=== PATIENT | male | born 1990 | race Caucasian/White ===

== ENCOUNTER → 2021-04-06 | Outpatient (CLI) | payer MEDICARE, MEDICAID | LOC: SLEEP 19:15 | PROVIDERS: ATTEND Nurse Practitioner | DX: G47.33 Obstructive sleep apnea (adult) (pediatric) (principal); E78.00 Pure hypercholesterolemia, unspecified; Q90.9 Down syndrome, unspecified; D22.9 Melanocytic nevi, unspecified; E03.9 Hypothyroidism, unspecified; E78.5 Hyperlipidemia, unspecified; F32.9 Major depressive disorder, single episode, unspecified | CPT/HCPCS: 95811 ==

== ENCOUNTER 2023-05-09 05:47 | Emergency (ER) | payer MEDICARE, MEDICAID ==
[~2023-05-09] VITALS: Ht 157.4 cm; Wt 94.5 kg
--- NOTE | 2023-05-09 06:41 | ED Cardiac General ---
History of Present Illness General Chief Complaint: Cardiac/General Problems Stated Complaint: Bradycardia Nursing Triage Note: Patient arrival per POV ambulatory to ED RM 1 with mother (guardian) accompanied. Pt has Down's Syndrome. Mother reports she has been checking his heart rate on an SpO2 monitor this wknd and seeing bradycardia rates as low as [address] Child office and appt made today. Pt's CPAP machine downloaded yesterday by Dr Lo and no abnormality noted. Lowest rates when asleep, Pt is asymptomatic. Source: family (Mother), RN notes reviewed Exam Limitations: physical impairment (Down syndrome) (MYNOR GUERRERO MD) History of Present Illness Date Seen by Provider: May 09, 2023 Time Seen by Provider: 06:14 Initial Comments 32-year-old male patient with history of Down syndrome, hypothyroidism, sleep apnea on CPAP, hyperlipidemia brought in by his mother because of bradycardia.. Patient mother is a retired PRODUCTION COUNTER and checked his blood pressure 4 days ago whilst he was checking her blood pressure and was concern for bradycardia that was as low as 41. Patient did not have any symptoms. Patient mother talked to his primary care physician Dr. Child yesterday and made appointment for today and PCP recommended to come to ER for EKG and blood test and troponin if continues to have bradycardia and she checked his pulse oximeter intermittently during the night and decided to come to ER because of bradycardia because of heart rate of as low as 37 while asleep. Patient's CPAP machine downloaded yesterday by Dr. Lo and no abnormality was noted. Patient is oriented x1 and does not have any complaint. Patient mother stated he recently complaining of episode of abdominal pain and he gave him omeprazole occasionally. ASA po BUSINESS OFFICE SPECIALIST: No (MYNOR GUERRERO MD) Allergies and Home Medications Allergies Coded Allergies: morphine (Unverified Adverse Reaction, Unknown, 05/09/23) Patient Home Medication List Home Medication List Reviewed: Yes (MYNOR GUERRERO MD) Review of Systems Review of Systems Constitutional: no symptoms reported EENTM: No Symptoms Reported Respiratory: No Symptoms Reported Cardiovascular: See HPI Gastrointestinal: See HPI Genitourinary: No Symptoms Reported Musculoskeletal: no symptoms reported Skin: no symptoms reported Psychiatric/Neurological: No Symptoms Reported Endocrine: No Symptoms Reported Hematologic/Lymphatic: No Symptoms Reported Other Comments Patient has Down syndrome and denies any problem. 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 oz. kg; 38.00 BMI Method: General Appearance: No Apparent Distress HEENT: PERRL/EOMI Neck: Full Range of Motion Respiratory: Chest Non Tender, Lungs Clear, Normal Breath Sounds Cardiovascular: No Edema, Bradycardia Gastrointestinal: Normal Bowel Sounds, No Organomegaly, No Pulsatile Mass Extremity: Normal Capillary Refill Neurologic/Psychiatric: Alert Skin: Normal Color, Warm/Dry (MYNOR GUERRERO MD) Progress/Results/Core Measures Results/Orders Lab Results Laboratory Tests Test 05/09/23 06:40 Range/Units White Blood Count 3.9 L 4.3-11.0 10^3/uL Red Blood Count 5.02 4.30-5.52 10^6/uL Hemoglobin 14.7 13.3-17.7 g/dL Hematocrit 44 40-54 % Mean Corpuscular Volume 88 80-99 fL Mean Corpuscular Hemoglobin 29 25-34 pg Mean Corpuscular Hemoglobin Concent 33 32-36 g/dL Red Cell Distribution Width 13.2 10.0-14.5 % Platelet Count 195 130-400 10^3/uL Mean Platelet Volume 9.0 9.0-12.2 fL Immature Granulocyte % (Auto) 0 % Neutrophils (%) (Auto) 51 42-75 % Lymphocytes (%) (Auto) 38 12-44 % Monocytes (%) (Auto) 7 0-12 % Eosinophils (%) (Auto) 2 0-10 % Basophils (%) (Auto) 2 0-10 % Neutrophils # (Auto) 2.0 1.8-7.8 10^3/uL Lymphocytes # (Auto) 1.5 1.0-4.0 10^3/uL Monocytes # (Auto) 0.3 0.0-1.0 10^3/uL Eosinophils # (Auto) 0.1 0.0-0.3 10^3/uL Basophils # (Auto) 0.1 0.0-0.1 10^3/uL Immature Granulocyte # (Auto) 0.0 0.0-0.1 10^3/uL Prothrombin Time 13.1 12.2-14.7 SEC INR Comment 1.0 0.8-1.4 Activated Partial Thromboplast Time 37 H 24-35 SEC Sodium Level 135 135-145 MMOL/L Potassium Level 4.4 3.6-5.0 MMOL/L Chloride Level 100 98-107 MMOL/L Carbon Dioxide Level 25 21-32 MMOL/L Anion Gap 10 5-14 MMOL/L Blood Urea Nitrogen 19 H 7-18 MG/DL Creatinine 0.95 0.60-1.30 MG/DL Estimat Glomerular Filtration Rate 108 BUN/Creatinine Ratio 20 Glucose Level 148 H 70-105 MG/DL Calcium Level 9.1 8.5-10.1 MG/DL Corrected Calcium 9.3 8.5-10.1 MG/DL Magnesium Level 2.3 1.6-2.4 MG/DL Total Bilirubin 0.7 0.1-1.0 MG/DL Aspartate Amino Transf (AST/SGOT) 16 5-34 U/L Alanine Aminotransferase (ALT/SGPT) 17 0-55 U/L Alkaline Phosphatase 83 40-136 U/L Troponin I < 0.30 <0.30 NG/ML Pro-B-Type Natriuretic Peptide < 36.0 <125.0 PG/ML Total Protein 7.3 6.4-8.2 GM/DL Albumin 3.7 3.2-4.5 GM/DL (AMY LEVY MD) Vital Signs/I&O 05/09/23 05:54 Temp 35.1 Pulse 62 Resp 16 B/P (MAP) 123/80 (94) Pulse Ox 99 O2 Delivery Room Air (AMY LEVY MD) Blood Pressure Mean: 94 Progress Progress Note : Progress Note Patient with history of Down syndrome brought in by his mother who is a retired ER nurse because of bradycardia with heart rate as low as 37 without symptoms. EKG showed normal sinus rhythm at rate of 60. Patient had few episodes of bradycardia at 50s. Labs is pending. Patient care transferred to incoming ER physician at 0700. (MYNOR GUERRERO MD) Progress Note : Progress Note Received the patient in signout. I personally evaluated him, at that time his heart rate was in the 70s to 80s. He is alert, has been asymptomatic this whole time. The basic labs were significant for normal hemoglobin, normal potassium, normal magnesium, normal creatinine, negative troponin, normal BNP. I discussed asymptomatic bradycardia with the patient's mother and the patient. I recommended follow-up with cardiology and the PCP. I believe he stable for discharge with outpatient follow-up. He was sent home with strict return precautions. (AMY LEVY MD) Initial ECG Impression Date: May 09, 2023 Initial ECG Impression Time: 06:35 Initial ECG Rate: 60 Initial ECG Intervals EKG interpreted by me and showed normal sinus rhythm at rate of 60, CA interval of 143, QT interval of 430 and QTc of 431, QRS duration of 98, no acute ST and T wave elevation. (MYNOR GUERRERO MD) Departure Impression Primary Impression: Asymptomatic bradycardia Disposition: 01 HOME, SELF-CARE Condition: Stable Departure-Patient Inst. Decision time for Depature: 07:30 (AMY LEVY MD) Referrals: MATT CHILD MD (PCP/Family) Primary Care Physician Patient Instructions: Bradycardia (DC) Add. Discharge Instructions: His current diagnosis is asymptomatic bradycardia. He is mostly bradycardic when he is resting and not active which is reassuring that his heart rate goes up with activity. We recommend following up with his PCP as well as with the instructor dancing in [place], either Dr. Zavala or Dr. Falk. If he becomes symptomatic when bradycardic such as having low blood pressure, lightheaded or passing out, then we would want him to come back to the ER. Work/School Note: Family Work Note, Patient Received Medical Care In the Emergency Department On: May 09, 2023 Patient Will Be Able to Return to Work/School On: May 10, 2023 Work Release Form Date Seen in the Emergency Department: May 09, 2023 Return to Work: May 10, 2023 Restrictions: No Restrictions MYNOR GUERRERO MD May 09, 2023 06:41 AMY LEVY MD May 09, 2023 07:26
[2023-05-09 06:50] LABS: BASOPHILS # (AUTO) 0.1 10^3/uL (0.0-0.1); BASOPHILS % (AUTO) 2 % (0-10); EOSINOPHILS # (AUTO) 0.1 10^3/uL (0.0-0.3); EOSINOPHILS % (AUTO) 2 % (0-10); HEMATOCRIT 44 % (40-54); HEMOGLOBIN 14.7 g/dL (13.3-17.7); LYMPHOCYTES # (AUTO) 1.5 10^3/uL (1.0-4.0); LYMPHOCYTES % (AUTO) 38 % (12-44); MEAN CORPUSCULAR HEMOGLOBIN 29 pg (25-34); MEAN CORPUSCULAR HGB CONC 33 g/dL (32-36); MEAN CORPUSCULAR VOLUME 88 fL (80-99); MONOCYTES # (AUTO) 0.3 10^3/uL (0.0-1.0); MONOCYTES % (AUTO) 7 % (0-12); NEUTROPHILS % (AUTO) 51 % (42-75); PLATELET COUNT 195 10^3/uL (130-400); WHITE BLOOD COUNT 3.9 10^3/uL (4.3-11.0)
[2023-05-09 07:04] LABS: PROTHROMBIN TIME PATIENT 13.1 SEC (12.2-14.7)
[2023-05-09 07:11] LABS: CARBON DIOXIDE 25 MMOL/L (21-32); CHLORIDE 100 MMOL/L (98-107); POTASSIUM 4.4 MMOL/L (3.6-5.0); SODIUM 135 MMOL/L (135-145)
[2023-05-09 07:12] LABS: ALANINE AMINOTRANSFERASE 17 U/L (0-55); ALKALINE PHOSPHATASE 83 U/L (40-136); BILIRUBIN,TOTAL 0.7 MG/DL (0.1-1.0); BUN/CREATININE RATIO 20; CALCIUM 9.1 MG/DL (8.5-10.1); CREATININE SERUM 0.95 MG/DL (0.60-1.30); GFR ESTIMATED 108; GLUCOSE 148 MG/DL (70-105); MAGNESIUM 2.3 MG/DL (1.6-2.4)
[2023-05-09 07:17] LABS: ALBUMIN 3.7 GM/DL (3.2-4.5); TOTAL PROTEIN 7.3 GM/DL (6.4-8.2)
[2023-05-09 07:29] VITALS: BP 111/79
== END 2023-05-09 07:29 | disposition home or self-care (01) ==
LOC: EDUNIT# 05:47 → ER FS 05:51
DX: R00.1 Bradycardia, unspecified (principal); E66.9 Obesity, unspecified; G47.33 Obstructive sleep apnea (adult) (pediatric); Z99.89 Dependence on other enabling machines and devices; Z68.38 Body mass index [BMI] 38.0-38.9, adult
CPT/HCPCS: 36415; 80053; 83735; 83880; 84484; 85025; 85610; 85730; 93005

== ENCOUNTER → 2023-06-13 | Outpatient (CLI) | payer MEDICARE, MEDICAID | LOC: CARD 12:00 | PROVIDERS: ATTEND Internal Medicine Cardiovascular Disease | DX: I10 Essential (primary) hypertension (principal); I25.10 Atherosclerotic heart disease of native coronary artery without angina pectoris | CPT/HCPCS: 93306 ==